=== PATIENT | male | born 1975 | race Caucasian/White ===

== ENCOUNTER 2018-02-16 11:04 | Emergency (ER) | payer OTHER ==
[~2018-02-16] VITALS: Ht 170.2 cm; Wt 69.4 kg
--- NOTE | 2018-02-16 14:12 | CT SCAN REPORT ---
EXAMINATION: CT HEAD WITHOUT CONTRAST CLINICAL INFORMATION: Severe headache. COMPARISON: None TECHNIQUE: Contiguous axial imaging was performed from the skull base to vertex without intravenous administration of contrast. DLP: 620 mGy-cm FINDINGS: Brain parenchyma: Normal. Estrada-white matter differentiation is well preserved. No evidence of an acute major vascular territory infarction, hemorrhage, mass or midline shift. Cerebrospinal fluid spaces: Normal. No hydrocephalus or extra-axial fluid collections. Cerebellum and brainstem: Unremarkable. The 4th ventricle is midline in position. The cerebellopontine angles are normal. Calvarium and temporomandibular joints: Calvarium is intact. Mastoid air cells and middle ear cavities are well aerated. The TMJs are normal. Paranasal sinuses and orbits: The visualized paranasal sinuses are well aerated. The visualized orbits and globes are unremarkable. Other: No acute findings in the visualized extracranial soft tissues. IMPRESSION: No acute intracranial pathology.
--- NOTE | 2018-02-16 15:21 | ED HEADACHE COMPLAINT ---
History of Present Illness General Chief Complaint: Headache Stated Complaint: SIB WALK IN FOR MIGRAINE, AND NECK PAIN Source: patient Exam Limitations: no limitations Vital Signs & Intake/Output Vital Signs & Intake/Output Vital Signs Date Time Temp Pulse Resp B/P B/P Pulse O2 O2 Flow FiO2 Mean Ox Delivery Rate 02/16 1536 Room Air 02/16 1535 110 18 140/92 Room Air 02/16 1116 96.8 66 20 143/96 97 Room Air Allergies Coded Allergies: NO KNOWN ALLERGIES (12/02/11) Triage Note: PT TO ED C/O HEADACHE X 3 DAYS. H/O COMPRESSION FRACTURES. ALSO C/O "LUMP" TO RIGHT SIDE OF HEAD X A FEW YEARS. SENT TO ED BY WALK-IN. Triage Nurses Notes Reviewed? yes Onset: Gradual Duration: day(s): Timing: recent history Quality/Severity: moderate HPI: 22-year-old male presents emergency department complaining of persistent headache 2 days. Patient states he wakes up with a headache almost every morning however his headache is usually relieved with ibuprofen. Patient states that 2 days ago his headache was not relieved with Motrin and has been persistent. Headache described as occipital radiating towards top of his head. Headache has been constant. Patient states that yesterday while he was at work he was experiencing double vision, this has resolved since then. Headache is similar in quality to previous headaches however this headache is more severe pounding his emergency department visit. Patient is currently in workup with a neurologist. He also reports a "lump" to posterior scalp which is painful - described as stinging and burning. The patient also reports pain in his neck related to two compression fracture. The patient denies rash, fevers, vomiting, blurry vision, head trauma. (Paola RODRIGUEZ,Dotty Padilla) Past History Travel History Traveled to [place] past 21 day No Medical History Any Pertinent Medical History? see below for history Musculoskeletal: compression fractures Psychiatric: on suboxone Surgical History Surgical History: non-contributory Psychosocial History What is your primary language Malagasy Tobacco Use: Current Daily Use Daily Tobacco Use Amount/Type: => 5 Cigarettes daily ETOH Use: denies use Illicit Drug Use: denies illicit drug use Family History Hx Contributory? No (Dotty Grier) Review of Systems Review of Systems Constitutional: Reports: no symptoms. Eyes: Reports: see HPI. Ears, Nose, Throat, Mouth: Reports: no symptoms. Respiratory: Reports: no symptoms. Cardiovascular: Reports: no symptoms. Gastrointestinal/Abdominal: Reports: no symptoms. Genitourinary: Reports: no symptoms. Musculoskeletal: Reports: see HPI. Skin: Reports: no symptoms. Neurological/Psychological: Reports: see HPI. Hematologic/Endocrine: Reports: no symptoms. Endocrine: Reports: no symptoms. Immunologic/Allergic: Reports: no symptoms. All Other Systems: Reviewed and Negative (Paola RODRIGUEZ,Dotty Padilla) Physical Exam Physical Exam General Appearance: well developed/nourished, no apparent distress, alert, awake Head: atraumatic, normal appearance Eyes: Bilateral: normal appearance, PERRL, EOMI. Ears, Nose, Throat: normal pharynx, normal ENT inspection, hearing grossly normal Neck: normal inspection, supple, full range of motion Respiratory: normal breath sounds, no respiratory distress, lungs clear Cardiovascular: regular rate/rhythm Gastrointestinal: normal bowel sounds, soft, non-tender Back: normal inspection, normal range of motion Extremities: normal inspection, normal range of motion Psychiatric: awake, alert, oriented x 3 Cranial Nerves: normal hearing, normal speech, PERRL, CN II-XII intact Coordination/Gait: normal finger to nose, normal gait Motor/Sensory: no motor/sensory deficits Skin: intact, normal color, warm/dry Core Measures Sepsis Present: No Sepsis Focused Exam Completed? No (Paola RODRIGUEZ,Dotty Padilla) Progress Differential Diagnosis: cluster MARCELINO, encephalitis, IC mass/tumor, intracranial Hem., meningitis, migraine MARCELINO, musculoskeletal pain, sinusitis, neuralgia Plan of Care: Current Medications Sig/Idris Start time Last Medication Dose Stop Time Status Admin Acetaminophen/ 1 TAB ONCE ONE 02/16 1530 UNVr Butalbital/Caffeine 02/16 1531 (Fioricet) I did not detect "lump" on patient's posterior scalp with palpation, no abnormality detected on his CT scan. I offered the patient the medications to alleviate his headache however he states "I just want to go home". Patient does except Fioricet PO prior to discharge. He is neurologically intact, no focal neurologic deficit, ambulates with steady gait. He does have a neurologist who he is going to follow up with. He requests to leave ED without further meds or evaluation. Diagnostic Imaging: Viewed by Me: CT Scan. Discussed w/RAD: CT Scan. Radiology Impression: PATIENT: FELECIA MARTÍNEZ PRESENT AGE: 42 PATIENT ACCOUNT NO: [id number] : 75 LOCATION: [facility] ORDERING PHYSICIAN: Siri Serrano PA-C SERVICE DATE: 02/16/18 EXAM TYPE: CAT - CT HEAD WO IV CONTRAST EXAMINATION: CT HEAD WITHOUT CONTRAST CLINICAL INFORMATION: Severe headache. COMPARISON: None TECHNIQUE: Contiguous axial imaging was performed from the skull base to vertex without intravenous administration of contrast. DLP: 620 mGy-cm FINDINGS: Brain parenchyma: Normal. Estrada-white matter differentiation is well preserved. No evidence of an acute major vascular territory infarction, hemorrhage, mass or midline shift. Cerebrospinal fluid spaces: Normal. No hydrocephalus or extra-axial fluid collections. Cerebellum and brainstem: Unremarkable. The 4th ventricle is midline in position. The cerebellopontine angles are normal. Calvarium and temporomandibular joints: Calvarium is intact. Mastoid air cells and middle ear cavities are well aerated. The TMJs are normal. Paranasal sinuses and orbits: The visualized paranasal sinuses are well aerated. The visualized orbits and globes are unremarkable. Other: No acute findings in the visualized extracranial soft tissues. IMPRESSION: No acute intracranial pathology. DICTATED BY: Camron Hill MD DATE/TIME DICTATED:02/16/181405 FELTMAKER:MARQUITA DATE/ TIME TRANSCRIBED:02/16/181405 CONFIDENTIAL, DO NOT COPY WITHOUT APPROPRIATE AUTHORIZATION. <Electronically signed in Other Vendor System> SIGNED BY: Camron Hill MD 02/16/18 1412 (Dotty Grier) Departure Departure Disposition: HOME OR SELF CARE Condition: Stable Clinical Impression Primary Impression: Headache Qualifiers: Headache type: unspecified Headache chronicity pattern: acute headache Referrals: Mildred Vargas MD (PCP/Family) Additional Instructions: Follow-up with your primary care physician. Also follow-up with the neurologist. Return if worsening symptoms or concerns. Please note that there might be incidental findings in your evaluation that are unrelated to the current emergency department visit. Please notify your primary care doctor about this emergency department visit in order to obtain and review all of the testing performed so that these incidental findings can be monitored as needed. If you had an x-ray performed, please understand that some fractures may not be seen on the initial set of x-rays. If your symptoms persist you might need a repeat set of x-rays to check for such a fracture. If you had a laceration evaluated, please understand that foreign bodies such as glass or wood may not be visible to the naked eye or on plain x-rays. If the wound becomes red, swollen, increasingly more painful or if there is any drainage from the wound, please have it reevaluated by a physician for the possibility of a retained foreign body. If you're unable to follow up as outlined in the discharge instructions please return to the emergency department. Thank you for choosing the Emergency Department for your care. It was a pleasure to serve you today. Departure Forms: Customer Survey General Discharge Information (Paola RODRIGUEZ,Dotty Padilla) PA/PROGRAM SERVICES ASSISTANT Co-Sign Statement Statement: ED Attending supervision documentation- [] I saw and evaluated the patient. I have also reviewed all the pertinent lab results and diagnostic results. I agree with the findings and the plan of care as documented in the PA's/PROGRAM SERVICES ASSISTANT's documentation. [x] I have reviewed the ED Record and agree with the PA's/PROGRAM SERVICES ASSISTANT's documentation. [] Additions or exceptions (if any) to the PAs/PROGRAM SERVICES ASSISTANT's note and plan are summarized below: [] (Keegan TOLEDO,[facility])
[2018-02-16 15:35] VITALS: BP 140/92
== END 2018-02-16 15:37 ==
LOC: ERH 11:04
DX: R51 Headache (principal); F17.210 Nicotine dependence, cigarettes, uncomplicated